=== PATIENT | female | born 1990 | race African-American/Black ===

== ENCOUNTER 2017-01-01 10:51 | Inpatient (IN) | payer MEDICAID ==
[2017-01-01] VITALS (7 sets, daily range): BP systolic 104–122; BP diastolic 49–69; PULSE 67–100; RESP 16–20; TEMP 97.4–99.4; O2SAT 99–100
[~2017-01-01] VITALS: Ht 160 cm; Wt 78.0 kg
[~2017-01-01 10:51] MED LIST: PREN1TAB63
[2017-01-01] MEDS ORDERED: MORPHINE SULFATE PF 5 MG/10 ML VIAL ONE (12:00)
[2017-01-01] MEDS ORDERED: OXYTOCIN 10 UNIT/ML AMP IV ONE (12:00)
[2017-01-01] MEDS ORDERED: ePHEDrine/NS 25 MG/5 ML SYR IV ONE (12:00)
[2017-01-01] MEDS ORDERED: LACTATED RINGER'S 1000 ML INJ 1,000 ML IV ONE (12:02)
--- NOTE | 2017-01-01 12:08 | HHI.HP ---
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 Patient is interested in delivering vaginally if she can. She has no complaints or problems she is in a problem with this with baby is active and [facility]. She had in [place] and she was induced for postdates, had a failure to progress and then she describes it as an "emergency surgery". We do not have her operative report from that visit well hopefully have careful women requests that Weeks Gestation: 37 Para: 1 : 6 History (Limited) History Obstetric History Obstetric History 1 in [place] Past Surgical History Narrative Surgical Social History Alcohol Use: No Tobacco Use: No Substance Abuse: No Allergies-Medications Allergies-Medications (Allergen,Severity, Reaction): Coded Allergies: No Known Allergies (Unverified , 12/13/16) Home Meds Reported Medications Multivit-Min W/Fe-FA ( Vitamins 0.8 mg) 1 Tab Tab 12/06/16 ROS Review of Systems General / Constitutional: No: Fever, Weight Gain, Chills, Other Eyes: No: Diploplia, Blurred Vision, Visual changes, Pain, Photophobia HENT: No: Headaches, Vertigo, Lightheadedness Cardiovascular: No: Irregular Rhythm, Chest Pain or Discomfort, Palpitations, Tachycardia, Syncope, Varicosities, Edema, Cyanosis Respiratory: No: Cough, Short of Breath, Other Gastrointestinal: No: Nausea, Vomiting, Diarrhea Genitourinary: No: Decreased Urinary Output, Oliguria Musculoskeletal: No: Limited ROM, Weakness, Cramping, Edema, Pain Skin: No Rash, No Itching, No Dryness, No Lumps, No Change in Pigmentation, No Change in Nails, No Alopecia, No Lesions Neurologic: No: Weakness, Dizziness, Syncope, Focal Abnormalities, Coordination Problem, Headache, Slurred Speech, Seizures Psychiatric: No: Depression, Suicidal Ideations, Homicidal Ideation Endocrine: No: Heat Intolerance, Cold Intolerance, Polydipsia, Polyuria, Other Physical Exam Physical Exam Narrative GENERAL: Well-nourished, well-developed patient. SKIN: Warm and dry. HEAD: Normocephalic and atraumatic. EYES: No scleral icterus. No injection or drainage. ENT: No nasal drainage noted. Mucous membranes pink. Airway patent. NECK: Supple, trachea midline. No JVD. CARDIOVASCULAR: Regular rate and rhythm without murmurs, gallops, or rubs. RESPIRATORY: Breath sounds equal bilaterally. No accessory muscle use. BREASTS: Bilateral exam showed no masses , no retractions, no nipple discharge. ABDOMEN/GI: Abdomen soft, non-tender, bowel sounds present, no rebound, no guarding Gravid to [-37] weeks size Fundal Height: [37-] GENITOURINARY: External Genitalia: intact and normal in appearance BUS glands: [-] Cervix: [-] Dilatation: [-Post] Effacement: [-] Thick Station: [-3] Presentation: [vtx-] Membranes: [intact ] Uterine Contractions: [-none] FHT's: Category: [1-] Baseline: [133-] Reactive: [-yes] Variability: [-mod] Decels: [none-] EXTREMITIES: No cyanosis or edema. BACK: Nontender without obvious deformity. No CVA tenderness. NEUROLOGICAL: Awake and alert. Motor and sensory grossly within normal limits. Five out of 5 muscle strength in all muscle groups. Normal speech. Data Data [facility] Interpretation(s) This patient is 26-year-old black female A 4 previous 1 at 37 weeks who presents for repeat. . She understands is a less than 1% risk of uterine rupture with laboring after . She understands that risk and benefit and is willing to take that risk, QUESTIONS she had were answered today. Plan to set the patient up for repeat at 41 weeks and will allow that much time between now and then to go into labor on her own and try to , and have a repeat Plan Plan Diagnosis: previous Disposition: ADMIT for C section repeat Condition: Stable Jose Wolf II, MD, Bill L. II MD Jan 01, 2017 12:08
[2017-01-01 12:16] LABS: BLOOD, URINE NEG (NEG); COMMENT (UR) CULT NOT INDICATED; CULTURE IF INDICATED CULT NOT INDICATED; GLUCOSE,URINE NEG (NEG); KETONE, URINE NEG (NEG); MUCUS URINE FEW /lpf (OCC); NITRITE,URINE NEG (NEG); PH, URINE 6.5 (5.0-8.5); SQUAMOUS EPITHELIAL CELL URINE 5 /hpf (0-5); URINE COLOR YELLOW (YELLW/STRAW)
[2017-01-01 12:27] LABS: AUTOMATED NEUTROPHIL # 4.4 TH/MM3 (1.8-7.7); BASOPHIL % 0.2 % (0.0-2.0); EOSINOPHIL % 0.7 % (0.0-4.0); HEMATOCRIT 35.5 % (35.0-46.0); HEMO FLAGS DIFF FINAL; LYMPH % 16.6 % (9.0-44.0); MEAN CELL VOLUME 86.4 FL (80.0-100.0); MEAN CORPUSCULAR HEMOGLOBIN 28.2 PG (27.0-34.0); MEAN CORPUSCULAR HGB CONC 32.7 % (32.0-36.0); MONO % 13.2 % (0.0-8.0); NEUT % 69.3 % (16.0-70.0); PLATELET COUNT 117 TH/MM3 (150-450); RED BLOOD COUNT 4.11 MIL/MM3 (4.00-5.30); RED CELL DISTRIBUTION WIDTH 14.2 % (11.6-17.2); WHITE BLOOD COUNT 6.3 TH/MM3 (4.0-11.0)
[2017-01-01] MEDS ORDERED: LACTATED RINGER'S 1000 ML INJ 1,000 ML IV SCH ×2 (12:32→19:01)
[2017-01-01] MEDS ORDERED: CITRIC ACID-SODIUM CITRATE LIQ 30 ML UDC PO SCH (13:45)
[2017-01-01] MEDS ORDERED: OXYTOCIN 30 UNITS-500ML PREMIX 500 ML IV ONE (14:15)
[2017-01-01] MEDS ORDERED: ZOLPIDEM TARTRATE 5 MG TAB PO PRN (14:15)
[2017-01-01] MEDS ORDERED: ACETAMINOPHEN 325 MG TAB PO PRN (14:15)
[2017-01-01] MEDS ORDERED: SODIUM CHLORIDE 0.9% FLUSH 10 ML FLUSH IV FLUSH PRN (14:15)
[2017-01-01] MEDS ORDERED: ONDANSETRON HCL 4 MG/2 ML VIAL IV PUSH PRN (14:15)
[2017-01-01] MEDS ORDERED: SIMETHICONE 80 MG CHEWABLE TAB PO PRN (14:15)
--- NOTE | 2017-01-01 14:29 | MP ---
cc: YOGI BERNAL MD DATE OF SURGERY: 01/01/2017 PREOPERATIVE DIAGNOSIS Previous section for repeat section at 39 weeks. POSTOPERATIVE DIAGNOSIS Previous section for repeat section at 39 weeks. PROCEDURE PERFORMED Repeat low transverse section. SURGEON Luciano. DATABASE ADMINISTRATION MANAGER Dr. Fajardo, [facility] ANESTHESIA Spinal. PRE-OP NOTE The patient is a 26-year-old black female, G6, P1, at 39 weeks. She had a previous section in [place] and now requests repeat section at term. She is 39 weeks. Proceed with section. PROCEDURE The patient was taken to the operating room and placed in supine position on the operating table. With adequate spinal anesthesia administered she was prepped and draped for abdominal surgery. The previous Pfannenstiel incision was excised out and cast off. The incision was carried through to the fascia sharply. The fascia was dissected off the rectus muscle and the rectus split in the midline. The incision was extended superiorly and inferiorly and is stretched open. A bladder blade was placed in the lower edge of the incision and the visceral peritoneum reflected off the lower uterine segment and placed on the bladder blade. A transverse hysterotomy was made and extended bluntly bilaterally. A male infant was delivered at 1:21 p.m., Apgars 9 and 9, weight 3580 grams. There were no complications. Cord blood obtained. Placenta manually extracted. The uterus was exteriorized. The hysterotomy was closed in a running layer of 0 chromic followed by an imbricating suture of the same. Hemostasis was achieved with a couple of stick ties. The bladder was re-approximated with a running layer of 2-0 Vicryl suture. The uterus was elevated and blood suctioned from the cul-de-sac and gutters, and the uterus replaced in the peritoneal cavity. The ovaries and tubes were within normal limits. The parietal peritoneum was closed in a running layer of 2-0 Vicryl. The muscle was re-approximated with stick ties of chromic. The fascia was closed in a running layer of 0 Vicryl. The subcutaneous tissue was re-approximated with running 3-0 plain catgut. The skin was closed with 3-0 Monocryl in a subcuticular stitch. A seven-day silver bandage was applied. Estimated blood loss was 600 cc. There were no complications. Sponge and needle counts were correct x2. The patient went to Recovery in stable condition. MD RICHIE Stringer /2:01 PM /2:17 PM
[2017-01-01] MEDS ORDERED: ACETAMINOPHEN 1000 MG/100 ML 100 ML IV ONE ×2 (14:58→15:45)
[2017-01-01] MEDS ORDERED: KETOROLAC TROMETHAMINE 60 MG/2 ML (IM) VIAL IM ONE ×2 (15:08→15:45)
[2017-01-01] MEDS ORDERED: OXYTOCIN 30 UNITS-500ML PREMIX 500 ML ONE (15:10)
[2017-01-01] MEDS ORDERED: KETOROLAC TROMETHAMINE 30 MG/ML (IVP) VIAL IV PUSH ONE (15:45)
[2017-01-01] MEDS ORDERED: SODIUM CHLORIDE 0.9% FLUSH 10 ML FLUSH IV FLUSH SCH (21:00)
[2017-01-02] MEDS ORDERED: OXYTOCIN 30 UNITS-500ML PREMIX 500 ML IV PRN (00:15)
[2017-01-02 00:30] VITALS: BP 115/69; PULSE 75; RESP 18; TEMP 99
[2017-01-02 05:30] VITALS: BP 101/69; PULSE 68; RESP 18; TEMP 98.3
[2017-01-02] MEDS: IBUPROFEN 600 MG TAB PO PRN ×3 (05:38→19:52)
[2017-01-02 06:05] LABS: AUTOMATED NEUTROPHIL # 5.2 TH/MM3 (1.8-7.7); BASOPHIL % 0.2 % (0.0-2.0); EOSINOPHIL # 0.1 TH/MM3 (0-0.4); EOSINOPHIL % 1.1 % (0.0-4.0); HEMATOCRIT 26.1 % (35.0-46.0); LYMPH % 12.7 % (9.0-44.0); LYMPHOCYTE # 0.9 TH/MM3 (1.0-4.8); MEAN CELL VOLUME 85.9 FL (80.0-100.0); MEAN CORPUSCULAR HEMOGLOBIN 29.3 PG (27.0-34.0); MEAN CORPUSCULAR HGB CONC 34.1 % (32.0-36.0); MONO % 10.5 % (0.0-8.0); NEUT % 75.5 % (16.0-70.0); PLATELET COUNT 83 TH/MM3 (150-450); RED BLOOD COUNT 3.03 MIL/MM3 (4.00-5.30); RED CELL DISTRIBUTION WIDTH 14.3 % (11.6-17.2); WHITE BLOOD COUNT 6.9 TH/MM3 (4.0-11.0)
[2017-01-02 06:09] LABS: HEMO FLAGS AUTO DIFF
--- NOTE | 2017-01-02 07:48 | HHI.OB ---
Subjective Post Operative Day: 1 Remarks doing well postop , jennifer diet , + voiding ,no BM , baby doing well Objective Vitals/I&O Vital Signs Date Time Temp Pulse Resp B/P (MAP) Pulse Ox O2 Delivery O2 Flow Rate FiO2 01/02/17 00:30 99.0 75 18 115/69 (84) 01/01/17 21:00 98.4 01/01/17 21:00 70 18 105/62 (76) 01/01/17 15:45 99.4 67 16 109/69 (82) 01/01/17 15:15 100 20 121/58 (79) 01/01/17 15:15 98.1 99 01/01/17 15:00 74 18 122/57 (78) 100 01/01/17 14:45 77 18 100 01/01/17 14:45 113/57 (75) 01/01/17 14:21 72 18 104/50 (68) 100 01/01/17 14:15 97.4 100 01/01/17 14:15 71 20 112/49 (70) Result Diagram: 01/02/17 0530 Objective Remarks GENERAL: Well-nourished, well-developed patient. CARDIOVASCULAR: Regular rate and rhythm without murmurs, gallops, or rubs. RESPIRATORY: Breath sounds equal bilaterally. No accessory muscle use. ABDOMEN/GI: Abdomen soft, non-tender, bowel sounds present. Incision: Clean, dry and intact.bandage dry Fundus: Firm, non-tender at umbilicus. GENITOURINARY: Light to moderate bleeding. EXTREMITIES: No cyanosis or edema, non-tender, without signs of DVT. Medications and IVs Current Medications Medications (Trade) Dose Ordered Sig/Ariana Route Start Time Stop Time Status Last Admin (Bicitra Liq) 30 ml PUBLIC RELATIONS MANAGER PO 01/01/17 13:45 01/05/17 13:44 01/01/17 14:19 Lactated Ringer's 1,000 ml @ 100 mls/hr Q10H IV 01/01/17 19:01 01/02/17 15:00 01/01/17 21:19 Oxytocin 500 ml @ 100 mls/hr UNSCH X1 PRN IV 01/02/17 00:15 01/03/17 00:14 (NS Flush) 2 ml BID IV FLUSH 01/01/17 21:00 (NS Flush) 2 ml UNSCH PRN IV FLUSH 01/01/17 14:15 (Mylicon Chew) 80 mg QID PRN PO 01/01/17 14:15 (Tylenol) 650 mg Q6H PRN PO 01/01/17 14:15 (Motrin) 600 mg Q6H PRN PO 01/01/17 14:15 01/02/17 05:38 (Percocet 5-325 Mg) 1 tab Q4H PRN PO 01/01/17 14:15 (Percocet 5-325 Mg) 2 tab Q4H PRN PO 01/01/17 14:15 (Rhianna-Colace) 2 tab Q12H PRN PO 01/01/17 14:15 (Ambien) 5 mg HS PRN PO 01/01/17 14:15 (M-M-R Ii Inj) 0.5 ml ONCE ONCE SQ 01/02/17 16:00 01/02/17 16:01 (Boostrix Inj) 0.5 ml ONCE ONCE IM 01/02/17 16:00 01/02/17 16:01 (Zofran Inj) 4 mg Q6H PRN IV PUSH 01/01/17 14:15 Assessment/Plan Assessment and Plan POD 1 AFVSS doing well , making normal progress , continue postop advancing care Jose Wolf II, MD Jan 02, 2017 07:48
[2017-01-02 08:00] VITALS: BP 114/65; PULSE 66; RESP 16; TEMP 98.1
[2017-01-02 09:27] LABS: PLATELET ESTIMATE SMEAR LOW (NORMAL); PLATELET MORPHOLOGY NORMAL (NORMAL); SCAN/DIFF AUTO DIFF CONFIRMED
[2017-01-02] MEDS: oxyCODONE/ACETAMINOPHEN 5 MG/325 MG TAB PO PRN ×2 (13:02→19:52)
[2017-01-02] MEDS: DOCUSATE SODIUM 50 MG/SENNA 8.6 MG TAB PO PRN (13:02)
[2017-01-02] MEDS ORDERED: MEASLES, MUMPS, RUBELLA VACCINE 0.5 ML VIAL SQ ONE (16:00)
[2017-01-02] MEDS ORDERED: DIPHTH/TETANUS/ACEL PERTUSSIS (BOOSTER) 0.5 ML VIAL/PFS IM ONE (16:00)
[2017-01-02 19:45] VITALS: BP 113/69; PULSE 89; RESP 20; TEMP 97.8
[2017-01-03] MEDS: oxyCODONE/ACETAMINOPHEN 5 MG/325 MG TAB PO PRN ×4 (00:57→18:42)
[2017-01-03] MEDS: DOCUSATE SODIUM 50 MG/SENNA 8.6 MG TAB PO PRN (05:48)
[2017-01-03] MEDS: IBUPROFEN 600 MG TAB PO PRN ×3 (05:49→18:45)
[2017-01-03 08:15] VITALS: BP 121/69; PULSE 81; RESP 16; TEMP 98.1
--- NOTE | 2017-01-03 09:00 | HHI.OB ---
Subjective Post Day: 2 Remarks 26 y/o POD#2 C/S. Afebrile overnight, vital signs within normal limits. Minimal pain and bleeding. Adequate intake, ambulating appropriately. Passed flatus, denies bowel movement, denies dysuria. No other complaints. Feeding via breast. (Elaine Bobo MD R1) Objective Vitals/I&O Vital Signs Date Time Temp Pulse Resp B/P (MAP) Pulse Ox O2 Delivery O2 Flow Rate FiO2 01/02/17 19:45 97.8 89 20 113/69 (84) Objective Remarks GENERAL: Well-nourished, well-developed patient. CARDIOVASCULAR: Regular rate and rhythm without murmurs, gallops, or rubs. RESPIRATORY: Breath sounds equal bilaterally. No accessory muscle use. ABDOMEN/GI: Abdomen soft, non-tender. Fundus: Firm, non-tender at umbilicus. Incision c/d/i. GENITOURINARY: Light to moderate bleeding. EXTREMITIES: No cyanosis or edema, non-tender, without signs of DVT. Medications and IVs Current Medications Medications (Trade) Dose Ordered Sig/Ariana Route Start Time Stop Time Status Last Admin (Bicitra Liq) 30 ml PARK SERVICES SPECIALIST PO 01/01/17 13:45 01/05/17 13:44 01/01/17 14:19 (NS Flush) 2 ml BID IV FLUSH 01/01/17 21:00 (NS Flush) 2 ml UNSCH PRN IV FLUSH 01/01/17 14:15 (Mylicon Chew) 80 mg QID PRN PO 01/01/17 14:15 (Tylenol) 650 mg Q6H PRN PO 01/01/17 14:15 (Motrin) 600 mg Q6H PRN PO 01/01/17 14:15 01/03/17 05:49 (Percocet 5-325 Mg) 1 tab Q4H PRN PO 01/01/17 14:15 01/03/17 05:48 (Percocet 5-325 Mg) 2 tab Q4H PRN PO 01/01/17 14:15 01/03/17 00:57 (Rhianna-Colace) 2 tab Q12H PRN PO 01/01/17 14:15 01/03/17 05:48 (Ambien) 5 mg HS PRN PO 01/01/17 14:15 (Zofran Inj) 4 mg Q6H PRN IV PUSH 01/01/17 14:15 (Elaine Bobo MD R1) Assessment/Plan Assessment and Plan 26 y/o female who is POD#2 s/p CXN. -Continue routine care. -Percocet and Motrin PRN pain. -Encouraged OOB. Advised pelvic rest for 6 wks. Will need a f/u appt. in 1 wk for incision check. -D/c tomorrow DW OB attending (Elaine Bobo MD R1) Attending Attestation POD #2 s/p c/s doing well d/c home in AM PP precautions One week incision check patient seen and examined. d/w Dr. Bocanegra and Dr. Bobo (Radha Barclay MD) Elaine Bobo MD R1 Jan 03, 2017 09:00 Radha Barclay MD Jan 03, 2017 09:27
[2017-01-03 21:12] VITALS: BP 123/53; PULSE 78; RESP 18; TEMP 98.3
[2017-01-04] MEDS: oxyCODONE/ACETAMINOPHEN 5 MG/325 MG TAB PO PRN ×3 (00:59→13:56)
[2017-01-04] MEDS: IBUPROFEN 600 MG TAB PO PRN ×3 (01:00→13:56)
[2017-01-04] MEDS: DOCUSATE SODIUM 50 MG/SENNA 8.6 MG TAB PO PRN (01:00)
[2017-01-04 08:00] VITALS: BP 112/63; PULSE 80; RESP 16; TEMP 98.1
--- NOTE | 2017-01-04 09:42 | HHI.OB ---
Subjective Post Day: 3 Remarks Postoperative day number 3. AFVSS overnight. Pain minimal. Incision not draining. Decreased lochia. Denies dysuria. No breast tenderness. She is feeding the baby via breast. Appetite good. No nausea or vomiting. Endorses flatus. No bowel movement in 1 week, per patient. Ambulating well. Denies calf pain, shortness of breath, or cough. She is doing well. Objective Vitals/I&O Vital Signs Date Time Temp Pulse Resp B/P (MAP) Pulse Ox O2 Delivery O2 Flow Rate FiO2 01/04/17 08:00 98.1 80 16 112/63 (79) 01/03/17 21:12 98.3 18 01/03/17 21:12 78 123/53 (76) Objective Remarks GENERAL: Well-nourished, well-developed patient. CARDIOVASCULAR: Regular rate and rhythm without murmurs, gallops, or rubs. RESPIRATORY: Breath sounds equal bilaterally. No accessory muscle use. ABDOMEN/GI: Abdomen soft, non-tender. Fundus: Firm, non-tender at umbilicus. Incision c/d/i. GENITOURINARY: Light to moderate bleeding. EXTREMITIES: No cyanosis or edema, non-tender, without signs of DVT. Medications and IVs Current Medications Medications (Trade) Dose Ordered Sig/Ariana Route Start Time Stop Time Status Last Admin (Bicitra Liq) 30 ml SUPERVISOR GREEN END DEPARTMENT PO 01/01/17 13:45 01/05/17 13:44 01/01/17 14:19 (NS Flush) 2 ml BID IV FLUSH 01/01/17 21:00 (NS Flush) 2 ml UNSCH PRN IV FLUSH 01/01/17 14:15 (Mylicon Chew) 80 mg QID PRN PO 01/01/17 14:15 (Tylenol) 650 mg Q6H PRN PO 01/01/17 14:15 (Motrin) 600 mg Q6H PRN PO 01/01/17 14:15 01/04/17 06:49 (Percocet 5-325 Mg) 1 tab Q4H PRN PO 01/01/17 14:15 01/04/17 06:50 (Percocet 5-325 Mg) 2 tab Q4H PRN PO 01/01/17 14:15 01/03/17 18:42 (Rhianna-Colace) 2 tab Q12H PRN PO 01/01/17 14:15 01/04/17 01:00 (Ambien) 5 mg HS PRN PO 01/01/17 14:15 (Zofran Inj) 4 mg Q6H PRN IV PUSH 01/01/17 14:15 Assessment/Plan Assessment and Plan 26 y/o female who is POD#3 s/p CXN. -Continue routine care. -Percocet and Motrin PRN pain. -Encouraged OOB. Advised pelvic rest for 6 wks. Will need a f/u appt. in 1 wk for incision check. -D/c today DW OB attending Elaine Bobo MD R1 Jan 04, 2017 09:42
[2017-01-04] MEDS ORDERED: SENN1TAB PO (09:51)
[2017-01-04] MEDS ORDERED: IBUP-232 PO (09:51)
[2017-01-04] MEDS ORDERED: OXYC1TAB63 PO (09:51)
--- NOTE | 2017-01-04 09:52 | HHI.DCPOC ---
Discharge Care Plan Diagnosis: (1) care following delivery Report Symptoms to Your Doctor -Temperature above 100.5 degrees -Redness, of incision or excessive or foul smelling drainage -Unusual pain or calf pain -Increased vaginal bleeding -Painful or difficulty urinating -Feelings of extreme sadness or anxiety after 2 weeks Goals to Promote Your Health * To prevent worsening of your condition and complications * To maintain your health at the optimal level Directions to Meet Your Goals Take your medications as prescribed Follow your dietary instruction Follow activity as directed Ensure plenty of rest for recovery Drink fluids for hydration Keep your appointments as scheduled Take your immunizations and boosters as scheduled If your symptoms worsen call your PCP, if no PCP go to Urgent Care Center or Emergency Room Smoking is Dangerous to Your Health. Avoid second hand smoke Call the 24-hour crisis hotline for domestic abuse at Michael Bocanegra MD, R2 Jan 04, 2017 09:52
[2017-01-14] MEDS ORDERED: NORE0.354 PO (13:56)
== END 2017-01-04 15:28 | disposition home or self-care (01) | DRG 766 ==
LOC: H2EB 10:51 → H1EA 15:38
PROVIDERS: ADMIT Obstetrics & Gynecology Maternal & Fetal Medicine; ATTEND Obstetrics & Gynecology Maternal & Fetal Medicine
PROC: 10D00Z1 Extraction of Products of Conception, Low, Open Approach (ICD-10-PCS; principal; 2017-01-01)
DX: O34.211 Maternal care for low transverse scar from previous cesarean delivery (principal); Z37.0 Single live birth; Z3A.39 39 weeks gestation of pregnancy
CPT/HCPCS: 59025; 81001; 85025; 86850; 86900; 86901; J0131; J0690; J1885; J2274; J2590; J7120